=== PATIENT | female | born 1985 | race Caucasian/White ===

== ENCOUNTER 2017-02-08 08:23 | Inpatient (IN) | payer OTHER ==
[~2017-02-08] VITALS: Ht 162.6 cm; Wt 69.0 kg
[2017-02-11] MEDS: D5%-LACTATED RINGERS 1,000 ML IV SCH ×2 (08:28→23:41)
[2017-02-11] MEDS ORDERED: OXYTOCIN 30U/ 0.9% NaCL 500ML 500 ML IV ONE (15:41)
[2017-02-11] MEDS ORDERED: OXYTOCIN 30U/ 0.9% NaCL 500ML 500 ML IV PRN (15:41)
[2017-02-11] MEDS: LACTATED RINGERS 1,000 ML IV SCH ×3 (15:45→21:27)
[2017-02-11] MEDS ORDERED: SODIUM CITRATE/CITRIC ACID 30 ML UDC PO PRN (16:00)
[2017-02-11] MEDS ORDERED: ONDANSETRON 2MG/ML, 2ML IVPush PRN (16:00)
[2017-02-11] MEDS ORDERED: METOCLOPRAMIDE 5 MG/ML, 2ML IVPush PRN (16:00)
[2017-02-11] MEDS ORDERED: FENTANYL PF 100 MCG/2ML IVPush PRN (16:00)
[2017-02-11] MEDS ORDERED: FENTANYL PF 100 MCG/2ML IV PRN (16:00)
[2017-02-11] MEDS ORDERED: OXYTOCIN 30U/ 0.9% NaCL 500ML 500 ML ONE (16:11)
[2017-02-11] MEDS ORDERED: LIDOCAINE 1%, 20ML ONE ×2 (16:11→21:25)
[2017-02-11] MEDS ORDERED: NEWBORN KIT ONE (16:11)
[2017-02-11] MEDS ORDERED: MISOPROSTOL 200 MCG TABLET ONE (16:11)
[2017-02-11 16:39] VITALS: BP 126/82
[2017-02-11] MEDS ORDERED: FENTANYL/BUPIV./NS/PF 250 ML EPIDCONT ONE ×2 (21:14→21:25)
[2017-02-11] MEDS ORDERED: EPHEDRINE 50 MG/ML, 1ML ONE (21:25)
[2017-02-11] MEDS ORDERED: BUPIVACAINE 0.25% ONE (21:25)
[2017-02-11] MEDS ORDERED: LIDOCAINE/PF 1.5%-EPI 1:200K, 30ML ONE (21:25)
[2017-02-11] MEDS ORDERED: TERBUTALINE 1 MG/ML, 1ML ONE (22:12)
[2017-02-11] MEDS ORDERED: FENTANYL/BUPIV./NS/PF 250 ML EPIDCONT SCH (22:57)
[2017-02-11] MEDS ORDERED: LACTATED RINGERS 1,000 ML IVBOLUS PRN (23:00)
[2017-02-12] MEDS: LACTATED RINGERS 1,000 ML IV SCH ×4 (01:46→11:39)
[2017-02-12] MEDS ORDERED: ONDANSETRON 2MG/ML, 2ML ONE (05:11)
[2017-02-12] MEDS: D5%-LACTATED RINGERS 1,000 ML IV SCH (07:41)
[2017-02-12] MEDS ORDERED: METHYLERGONOVINE 0.2 MG/ML IM ONE (09:00)
[2017-02-12] MEDS ORDERED: OXYTOCIN 30U/ 0.9% NaCL 500ML 500 ML ONE (09:05)
[2017-02-12] MEDS: OXYTOCIN 30U/ 0.9% NaCL 500ML 500 ML IV SCH (09:36)
[2017-02-12] MEDS ORDERED: DOCUSATE 100 MG CAPSULE ONE ×2 (09:43→10:36)
[2017-02-12] MEDS ORDERED: IBUPROFEN 800 MG TABLET ONE (09:43)
[2017-02-12] MEDS ORDERED: HYDROcodone/APAP 5/325 TABLET PO PRN (10:00)
[2017-02-12] MEDS ORDERED: ACETAMINOPHEN 325 MG TABLET PO PRN ×2 (10:00)
[2017-02-12] MEDS: DOCUSATE 100 MG CAPSULE PO SCH ×2 (10:07→10:43)
[2017-02-12] MEDS ORDERED: IBUPROFEN 600 MG TABLET ONE (10:36)
[2017-02-12] MEDS: IBUPROFEN 600 MG TABLET PO PRN ×2 (10:43→17:06)
[2017-02-12] MEDS ORDERED: OXYcodone/APAP 5/325MG TABLET ONE (11:32)
[2017-02-12 12:54] VITALS: BP 135/80
[2017-02-12 15:56] VITALS: BP 118/75
[2017-02-12 19:48] VITALS: BP 124/76
[2017-02-12 23:49] VITALS: BP 117/71
[2017-02-13] MEDS: HYDROcodone/APAP 5/325 TABLET PO PRN ×3 (02:45→15:42)
[2017-02-13] MEDS: IBUPROFEN 600 MG TABLET PO PRN ×2 (02:45→09:11)
[2017-02-13 03:49] VITALS: BP 108/65
[2017-02-13 07:18] VITALS: BP 108/60
[2017-02-13] MEDS: OXYTOCIN 30U/ 0.9% NaCL 500ML 500 ML IV SCH (07:29)
[2017-02-13] MEDS: LACTATED RINGERS 1,000 ML IV SCH (07:29)
[2017-02-13] MEDS ORDERED: PRENATAL VIT/IRON/FA 1 EACH TABLET PO SCH (09:00)
[2017-02-13] MEDS: DOCUSATE 100 MG CAPSULE PO SCH (09:11)
[2017-02-13 12:18] VITALS: BP 117/73
[2017-02-13] MEDS ORDERED: HYDR-3240 PO (15:52)
[2017-02-13] MEDS ORDERED: IBUP-1222 PO (15:52)
[2017-02-13] MEDS ORDERED: DOCU-30 PO (15:53)
[2017-02-13] MEDS ORDERED: FERR325T23 PO (15:54)
[2017-02-13 16:15] VITALS: BP 113/78
== END 2017-02-13 16:35 | disposition home or self-care (01) | DRG 775 ==
LOC: LDIP 02-11 15:09 → 2NW 02-12 11:42
PROVIDERS: ADMIT Obstetrics & Gynecology; ATTEND Obstetrics & Gynecology
PROC: 10D07Z6 Extraction of Products of Conception, Vacuum, Via Natural or Artificial Opening (ICD-10-PCS; principal; 2017-02-12)
PROC: 0DQR0ZZ Repair Anal Sphincter, Open Approach (ICD-10-PCS; 2017-02-12)
PROC: 0W8NXZZ Division of Female Perineum, External Approach (ICD-10-PCS; 2017-02-12)
PROC: 10907ZC Drainage of Amniotic Fluid, Therapeutic from Products of Conception, Via Natural or Artificial Opening (ICD-10-PCS; 2017-02-12)
PROC: 3E033VJ Introduction of Other Hormone into Peripheral Vein, Percutaneous Approach (ICD-10-PCS; 2017-02-12)
PROC: 00HU33Z Insertion of Infusion Device into Spinal Canal, Percutaneous Approach (ICD-10-PCS; 2017-02-12)
PROC: 3E0R3CZ (ICD-10-PCS; 2017-02-12)
DX: O41.03X0 Oligohydramnios, third trimester, not applicable or unspecified (principal); D62 Acute posthemorrhagic anemia; O70.20 Third degree perineal laceration during delivery, unspecified; O75.81 Maternal exhaustion complicating labor and delivery; O90.81 Anemia of the puerperium; Z3A.40 40 weeks gestation of pregnancy; Z83.2 Family history of diseases of the blood and blood-forming organs and certain disorders involving the immune mechanism; Z37.0 Single live birth; Z83.49 Family history of other endocrine, nutritional and metabolic diseases; Z88.0 Allergy status to penicillin
CPT/HCPCS: 36415; 85025; 86850; 86900; J2405; J3490; J2210; J2590; J3010; J7120; J7121